=== PATIENT | female | born 1970 | race African-American/Black ===

== ENCOUNTER 2020-05-02 11:02 | Outpatient (CLI) | payer OTHER ==
--- NOTE | 2020-05-02 16:33 | RAD ---
LEFT FOOT THREE VIEWS: 05/02/20 The great toe appeared intact. No bone or joint abnormality was seen in association with it. The othe r bones of the foot showed no acute change. A linear lucency in the base of the second and third meta tarsals on the AP view was felt to be normal findings. The same area is normal in appearance on all o ther views. IMPRESSION: No significant finding. POS: HOME
== END 2020-05-02 11:03 | disposition home or self-care (01) ==
LOC: BURRAD 11:02
PROVIDERS: ATTEND Physician Assistant
DX: M79.675 Pain in left toe(s) (principal)

== ENCOUNTER 2021-07-01 23:27 | Emergency (ER) | payer SELFPAY | END 2021-07-02 00:18 | disposition home or self-care (01) | LOC: BURERS 23:27 | DX: A08.4 Viral intestinal infection, unspecified (principal); I10 Essential (primary) hypertension; Z79.899 Other long term (current) drug therapy | CPT/HCPCS: 99283 ==

== ENCOUNTER 2021-10-27 15:02 | Outpatient (CLI) | payer OTHER | END 2021-10-27 15:03 | disposition home or self-care (01) | LOC: BURRAD 15:02 | PROVIDERS: ATTEND Physician Assistant | DX: M17.0 Bilateral primary osteoarthritis of knee (principal) ==